=== PATIENT | male | born 1975 | race Caucasian/White ===

== ENCOUNTER → 2017-04-26 | Outpatient (CLI) | payer BC | END | disposition home or self-care (01) | LOC: RAD 14:04 | DX: M70.22 Olecranon bursitis, left elbow (principal) | CPT/HCPCS: 73080; 73080-LT ==

== ENCOUNTER → 2017-05-30 | Outpatient (CLI) | payer BC | END | disposition home or self-care (01) | LOC: RAD 17:45 | DX: Z12.2 Encounter for screening for malignant neoplasm of respiratory organs (principal); I70.203 Unspecified atherosclerosis of native arteries of extremities, bilateral legs | CPT/HCPCS: 71046; 93922 ==

== ENCOUNTER 2017-06-22 13:34 | Day surgery (SDC) | payer BC ==
[2017-06-21 16:54] LABS: ADD MAN DIFF? NO
[2017-06-21 16:58] LABS: WHITE BLOOD COUNT 9.7 10^3/ul (4.8-10.8)
[2017-06-21 16:58] LABS: BASOPHIL # 0.1 10^3/ul (0.0-0.1); BASOPHILS % 0.5 % (0.0-2.0); EOSINOPHILS % 0.4 % (0.0-7.0); HEMATOCRIT 45.9 % (42.0-52.0); HEMOGLOBIN 15.3 g/dl (14.0-18.0); LYMPHOCYTES # 2.7 10^3/ul (0.8-2.9); LYMPHOCYTES % 27.5 % (15.0-51.0); MEAN CORPUSCULAR HEMOGLOBIN 29.8 pg (29.0-33.0); MEAN CORPUSCULAR HGB CONC 33.3 g/dl (32.0-37.0); MEAN CORPUSCULAR VOLUME 89.5 fl (82.0-101.0); MEAN PLATELET VOLUME 9.4 fl (7.4-10.4); MONOCYTE # 0.7 10^3/ul (0.3-0.9); MONOCYTES % 6.7 % (0.0-11.0); NEUTROPHIL # 6.2 10^3/ul (1.6-7.5); NEUTROPHILS % 64.5 % (39.0-77.0); PLATELET COUNT 351 10^3/UL (140-415); RED BLOOD COUNT 5.13 10^6/ul (4.70-6.10); RED CELL DISTRIBUTION WIDTH 12.2 % (11.5-14.5)
[2017-06-21 17:25] LABS: INR 0.92; PROTIME 12.4 Sec (11.9-14.9)
[2017-06-21 17:26] LABS: PARTIAL THROMBOPLASTIN TIME 30.2 Sec (25.0-35.0)
[2017-06-21 18:44] LABS: ERYTHROCYTE SEDIMENTATION RATE 5 mm/Hr (0-15)
[~2017-06-22 13:34] MED LIST: SUCCINYLCHOLINE CHLORIDE 100 MG/5 ML SYG IV
[2017-06-22 14:49] LABS: ADD MAN DIFF? NO
[2017-06-22 14:51] LABS: BASOPHILS % 0.3 % (0.0-2.0); EOSINOPHILS % 0.2 % (0.0-7.0); HEMATOCRIT 45.4 % (42.0-52.0); HEMOGLOBIN 15.1 g/dl (14.0-18.0); LYMPHOCYTES # 2.6 10^3/ul (0.8-2.9); LYMPHOCYTES % 25.9 % (15.0-51.0); MEAN CORPUSCULAR HEMOGLOBIN 29.5 pg (29.0-33.0); MEAN CORPUSCULAR HGB CONC 33.3 g/dl (32.0-37.0); MEAN CORPUSCULAR VOLUME 88.8 fl (82.0-101.0); MEAN PLATELET VOLUME 9.7 fl (7.4-10.4); MONOCYTE # 0.6 10^3/ul (0.3-0.9); MONOCYTES % 6.3 % (0.0-11.0); NEUTROPHIL # 6.6 10^3/ul (1.6-7.5); NEUTROPHILS % 66.9 % (39.0-77.0); PLATELET COUNT 335 10^3/UL (140-415); RED BLOOD COUNT 5.11 10^6/ul (4.70-6.10); RED CELL DISTRIBUTION WIDTH 12.2 % (11.5-14.5)
[2017-06-22 14:51] LABS: WHITE BLOOD COUNT 9.8 10^3/ul (4.8-10.8)
[2017-06-22] MEDS ORDERED: PROPOFOL 20 ML (16:04)
[2017-06-22] MEDS ORDERED: LIDOCAINE 2% (SDV) 5 ML INJ (16:04)
[2017-06-22] MEDS ORDERED: MIDAZOLAM 1 MG/ML 2 ML INJ (16:04)
[2017-06-22] MEDS ORDERED: FENTAnyl 50 MCG/ML VIAL (16:23)
[2017-06-22] MEDS ORDERED: CEFAZOLIN 1 GM INJ (16:24)
[2017-06-22] MEDS: BUPIVACAINE 0.5% (SDV) 30 ML INJ (16:31)
[2017-06-22] MEDS ORDERED: ONDANSETRON 4 MG INJ (16:52)
[2017-06-22] MEDS ORDERED: FAMOTIDINE 20 MG INJ (16:52)
[2017-06-22] MEDS: morphine 2 MG INJ IV (17:36)
[2017-06-22] MEDS: HYDROCODONE/APAP (5/325) TAB PO (17:37)
== END 2017-06-22 18:50 | disposition home or self-care (01) ==
LOC: SDS 13:34
DX: R22.32 Localized swelling, mass and lump, left upper limb (principal); Z85.850 Personal history of malignant neoplasm of thyroid; E78.5 Hyperlipidemia, unspecified
CPT/HCPCS: 11406; 85025; 85610; 85651; 85730; 88312

== ENCOUNTER → 2018-04-13 | Emergency (ER) | payer BC | END | disposition home or self-care (01) | LOC: FTE 13:35 | DX: R05 Cough (principal); I10 Essential (primary) hypertension; Z85.850 Personal history of malignant neoplasm of thyroid | CPT/HCPCS: 71046; 99283-25 ==

== ENCOUNTER 2018-08-13 10:55 | Day surgery (SDC) | payer BC ==
[2018-08-13] MEDS ORDERED: LACTATED RINGER'S 1,000 ML IV (12:00)
[2018-08-13] MEDS ORDERED: OXYCODONE/ACETAMINOPHEN (5/325) TAB PO (12:30)
[2018-08-13] MEDS ORDERED: DIPHENHYDRAMINE 50 MG INJ IV (12:30)
[2018-08-13] MEDS ORDERED: morphine (1 MG/ML) 10ML SYRINGE IV ×2 (12:30)
[2018-08-13] MEDS ORDERED: FENTAnyl 50 MCG/ML VIAL IV ×2 (12:30)
[2018-08-13] MEDS ORDERED: LABETALOL HCL 20MG INJ IV (12:30)
[2018-08-13] MEDS ORDERED: MEPERIDINE 25 MG INJ IV (12:30)
[2018-08-13] MEDS ORDERED: ONDANSETRON 4 MG INJ IV (12:30)
[2018-08-13] MEDS ORDERED: HYDROmorphONE 1 MG/5 ML IV SYRINGE IV ×3 (12:30)
[2018-08-13] MEDS ORDERED: ALBUTEROL 0.083% (NEB) 2.5 MG/3 ML AMP HHN (12:30)
[2018-08-13] MEDS ORDERED: IOHEXOL 300MG/ML 30 ML BTL (13:01)
[2018-08-13] MEDS ORDERED: BETAMET NA PHOS/AC(6 MG/ML) 5ML INJ (13:01)
[2018-08-13] MEDS ORDERED: LIDOCAINE 1% (MPF) 10 ML INJ (13:01)
[2018-08-13] MEDS ORDERED: PROPOFOL 60 ML (13:03)
[2018-08-13] MEDS ORDERED: LIDOCAINE 2% (SDV) 5 ML INJ (13:04)
[2018-08-13] MEDS ORDERED: MIDAZOLAM 1 MG/ML 2 ML INJ (13:04)
[2018-08-13] MEDS: LIDOCAINE 1% (MPF) 10 ML INJ INJ (13:25)
[2018-08-13] MEDS: BETAMET NA PHOS/AC(6 MG/ML) 5ML INJ INJ (13:25)
[2018-08-13] MEDS: OXYCODONE/ACETAMINOPHEN (5/325) TAB PO (14:41)
== END 2018-08-13 15:11 | disposition home or self-care (01) ==
LOC: SDS 10:55
DX: M54.16 Radiculopathy, lumbar region (principal)
CPT/HCPCS: 64483; 76000